=== PATIENT | female | born 1955 | race Caucasian/White ===

== ENCOUNTER → 2022-08-28 16:14 | Outpatient (CLI) | payer MEDICARE, OTHER, SELFPAY ==
[2022-08-28 17:50] LABS: Add Manual Diff / Slide Review NO; Basophils Absolute Auto 100 /uL (0-100); Eosinophils Absolute Auto 100 /uL (0-450); Hematocrit 38.8 % (36-46); Hemoglobin 13.3 g/dL (12.0-16.0); Lymphocytes Absolute Auto 3300 /uL (1100-4500); Lymphocytes Percent Auto 35.2 % (25-40); Mean Corpuscular HGB Conc 34.2 % (30-36); Mean Corpuscular Hemoglobin 30.1 PG (26-34); Monocytes Absolute Auto 700 /uL (0-900); Monocytes Percent Auto 7.4 % (3-14); Neutrophils Absolute Auto 5200 /uL (1500-7000); Neutrophils Percent Auto 55.4 % (50-75); Platelet Count 334 X10^3/uL (150-400); Red Blood Cell Count 4.41 X10^6/uL (4.0-5.2); Red Cell Distribution Width 13.2 % (11.6-14.8); White Blood Cell Count 9.3 X10^3/uL (4.5-11.0)
[2022-08-28 18:02] LABS: Appearance Urine UA CLEAR; Bilirubin Urine UA NEGATIVE (NEGATIVE); Color Urine UA YELLOW; Glucose Urine UA NEGATIVE (Negative); Ketones Urine UA TRACE (NEGATIVE); Leukocyte Esterase Urine UA 3+ (NEGATIVE); Nitrite Urine UA NEGATIVE (Negative); Occult Blood Urine UA NEGATIVE (Negative); Protein Urine UA NEGATIVE (Negative); Urobilinogen Urine UA 0.2 E.U./dL (0.2)
[2022-08-28 18:09] LABS: BUN Creatinine Ratio 18.9 (6-22); Blood Urea Nitrogen 14 mg/dL (7-17); Calcium 9.5 mg/dL (8.4-10.2); Carbon Dioxide 24 mmol/L (22-32); Chloride 102 mmol/L (98-107); Estimated Glomerular Filt Rate > 60 mL/min (>60); Glucose 85 mg/dL (80-110); HEMOLYSIS < 15 (0-50); Potassium 3.5 mmol/L (3.4-5.1); Sodium 136 mmol/L (137-145)
[2022-08-28 18:18] LABS: Bacteria Urine Moderate (10-30); Culture Indicated Urine Specimen Cultured; RBC Urine 1-5/HPF (0-5/HPF); Squamous Epithelial Cell Urine 1-5 /HPF (0-5/HPF); WBC Urine 30-100/HPF (0-5/HPF)
[2022-08-29 21:13] LABS: Labcorp Hemoglobin (Hb) A1c 5.3 % (4.8-5.6)
== END ==
PROVIDERS: Family Provider Family Medicine; PCP Physician Assistant Medical; Referring Provider Orthopaedic Surgery; Visit Provider Orthopaedic Surgery
DX: Z01.818 Encounter for other preprocedural examination (principal); R73.9 Hyperglycemia, unspecified; Z01.812 Encounter for preprocedural laboratory examination; N39.0 Urinary tract infection, site not specified
CPT/HCPCS: 36415; 80048; 81001; 83036; 85025; 87086; 93005

== ENCOUNTER 2022-10-07 15:45 | Emergency (ER) | payer MEDICARE, OTHER, SELFPAY ==
[2022-10-07 15:55] VITALS: BP 119/67; PULSE 70; RESP 16; TEMP 36.6; O2SAT 99; BMI 32.3
--- NOTE | 2022-10-07 16:00 | DI.US.S_ITS ---
PROCEDURE: US PERIPH VENOUS LOW EXTREM LT INDICATIONS: RECENT KNEE REPLACEMENT SURGERY, SWELLING TECHNIQUE: Real-time imaging, as well as color and pulse Doppler interrogation, were performed of the lower extremity deep veins from the inguinal ligament to the popliteal fossa. COMPARISON: None. FINDINGS: The common femoral, femoral and popliteal veins are normally compressible, and free of intraluminal thrombus. Color and pulse Doppler demonstrate normal phasic intraluminal flow. There is normal augmentation response to distal compression maneuver. IMPRESSION: Negative left lower extremity duplex venous ultrasound for DVT. Dictated by: David Eckert M.D. on 10/07/2022 at 17:15 Approved by: David Eckert M.D. on 10/07/2022 at 17:16
--- NOTE | 2022-10-07 18:12 | ED_ITS ---
HPI - Extremity Problem <Aime Morse PA-C - Last Filed: 10/07/22 18:17> General Chief complaint: Extremity Problem,Nontraumatic Stated complaint: DR REF/NEEDS US/POSS BLOOD CLOT Time Seen by Provider: 10/07/22 16:00 Source: patient Mode of arrival: Wheelchair History of Present Illness HPI Narrative: 67-year-old female 1 week status post a left knee replacement presents to the ED for some left ankle and lower leg bruising and swelling. Patient states that her left ankle was swollen since after the surgery, however her daughter noticed some bruising on the lateral aspect of her left ankle and left lower leg. Patient was sent to the ED by her doctor to rule out a DVT. Patient denies fever, chills, chest pain, shortness of breath, nausea, vomiting. Patient states that her surgical site is healing well. Patient denies any pain in the ankle or any injury or trauma to the ankle. Patient denies numbness, tingling, weakness. Related Data Home Medications Medication Instructions Recorded Confirmed aspirin 81 mg tablet,delayed 81 mg PO EVERY OTHER DAY ##0 02/03/16 release Previous Rx's Medication Instructions Recorded levofloxacin 250 mg tablet 750 mg PO NOW #3 tabs 02/08/16 (Levaquin) metronidazole 500 mg tablet 500 mg PO QIDP PRN ##16 02/08/16 (Flagyl) Allergies Allergy/AdvReac Type Severity Reaction Status Date / Time morphine [MORPHINE] Allergy Mild Verified 10/07/22 15:55 Sulfa (Sulfonamide Allergy Mild Verified 10/07/22 15:55 Antibiotics) [SULFA (SULFONAMIDE ANTIBIOTICS)] Review of Systems <Aime Morse PA-C - Last Filed: 10/07/22 18:17> Review of Systems ROS Unobtainable: All systems reviewed & are unremarkable except as noted in HPI and below Constitutional Constitutional: Denies chills, Denies fatigue, Denies fever(s), Denies frequent falls, Denies lethargy and Denies weakness Eyes Eyes: Denies change in vision, Denies eye discharge, Denies irritation and Denies loss of vision ENT Ears, Nose, Mouth, and Throat: Denies change in voice, Denies dizziness, Denies neck pain, Denies sore throat and Denies throat swelling Cardiovascular Cardiovascular: Denies chest pain, Denies irregular heart rhythm, Denies lightheadedness, Denies palpitations, Denies dyspnea, Denies dyspnea on exertion and Denies orthopnea Respiratory Respiratory: Denies cough, Denies dyspnea, Denies dyspnea on exertion and Denies wheezing Gastrointestinal Gastrointestinal: Denies abdominal pain, Denies change in bowel habits, Denies diarrhea, Denies nausea and Denies vomiting Genitourinary Genitourinary: Denies hematuria, Denies flank pain, Denies urinary incontinence and Denies urinary urgency Musculoskeletal Musculoskeletal: Denies back pain, Denies muscle weakness, Denies neck pain, Denies numbness and Denies tingling Comments: Left ankle and lower leg bruising Integumentary/Breasts Skin/Breast: Denies pruritus, Denies erythema, Denies rash and Denies wounds Neurologic Neurologic: Denies behavioral changes, Denies confusion, Denies dizziness, Denies frequent falls, Denies loss of vision, Denies numbness, Denies tingling and Denies weakness Psychiatric Psychiatric: Denies anxiety, Denies behavioral changes, Denies confusion, Denies depression, Denies homicidal ideation and Denies suicidal ideation Endocrine Endocrine: Denies fatigue, Denies flushing and Denies palpitations Hematologic/Lymphatic Hematologic/Lymphatic: Denies easy bruising Allergic/Immunologic Allergic/Immunologic: Denies urticaria, Denies throat swelling and Denies wheezing Patient History <Aime Morse PA-C - Last Filed: 10/07/22 18:17> Social History Smoking Status: Never smoker Smoking Status: Never smoker alcohol intake frequency: a few times a month Substance Use Type: marijuana Exam <Aime Morse PA-C - Last Filed: 10/07/22 18:17> Narrative Exam Narrative: Const General:?cooperative, healthy appearing and comfortable [facility] Head:?normal to inspection Ears:?hearing grossly normal bilaterally Nose:?external nose normal Face and sinus:?normal facial exam and sinuses nontender Mouth:?oral mucosae normal Throat:?posterior oropharynx normal Eyes General:?appearance normal, both eyes and all related structures Neck Neck:?normal visual inspection and no lymphadenopathy noted Resp Effort & Inspection:?normal respiratory effort Auscultation:?clear to auscultation bilaterally Cardio Rate:?regular rate Rhythm:?regular rhythm Musculoskeletal There is some lateral ankle and lower leg bruising that appears to be dependent blood possibly sequelae from the knee replacement in that leg from last week. No tenderness to palpation. No deformities noted. Lower leg and ankle appears somewhat swollen compared to the right, however patient states that it has been that way since the knee replacement. Strength and sensation is intact. Full range of motion. Patient is neurovascularly intact. Neuro General:?patient alert, patient awake and patient oriented x3 Initial Vital Signs Initial Vital Signs: Vital Signs Temperature 98 F 10/07/22 15:55 Pulse Rate 70 10/07/22 15:55 Respiratory Rate 16 10/07/22 15:55 Blood Pressure 119/67 10/07/22 15:55 Pulse Oximetry 99 10/07/22 15:55 Oxygen Delivery Method Room Air 10/07/22 15:55 <Macie Reyes DO - Last Filed: 10/08/22 07:22> Initial Vital Signs Initial Vital Signs: Vital Signs Temperature 98 F 10/07/22 15:55 Pulse Rate 70 10/07/22 15:55 Respiratory Rate 16 10/07/22 15:55 Blood Pressure 119/67 10/07/22 15:55 Pulse Oximetry 99 10/07/22 15:55 Oxygen Delivery Method Room Air 10/07/22 15:55 Course <Aime Morse PA-C - Last Filed: 10/07/22 18:17> Orders Ordered: ED Orders 10/07/22 16:00 US perip venous low extrem lt Stat Vital Signs Vital signs: Vital Signs - 8 hr 10/07/22 15:55 Temperature 98 F Pulse Rate 70 Respiratory Rate 16 Blood Pressure 119/67 Pulse Oximetry 99 Oxygen Delivery Method Room Air <DO Eder Gutierres Last Filed: 10/08/22 07:22> Orders Ordered: ED Orders 10/07/22 16:00 US perip venous low extrem lt Stat Vital Signs Vital signs: Vital Signs - 8 hr 10/07/22 15:55 Temperature 98 F Pulse Rate 70 Respiratory Rate 16 Blood Pressure 119/67 Pulse Oximetry 99 Oxygen Delivery Method Room Air MDM - Extremity (Nontraumatic) <Aime Morse PA-C - Last Filed: 10/07/22 18:17> MDM Narrative Medical decision making narrative: 67-year-old female 1 week status post a left knee replacement presents to the ED for some left ankle and lower leg bruising and swelling. Concern for DVT versus postoperative swelling and bruising. Ultrasound without acute findings. Discussed findings with patient. Patient agrees to follow-up with her orthopedic surgeon as scheduled. ED return precautions were discussed with patient. Patient verbalized understanding. Medical records reviewed: Yes Discharge Plan Departure Patient Disposition: Home Clinical Impression: Leg swelling Instructions: DI for Leg Pain Activity Restrictions/Additional Instructions: You were evaluated in the ED today for left ankle swelling and bruising following a knee replacement in that leg. The ultrasound of your leg shows no blood clots or DVTs. The bruising is likely due to some bleeding in the leg from the surgery, which should resolve in the next few days. Please follow-up with your orthopedic surgeon as scheduled. Return to the ED if your symptoms worsen, you experience fever, chills, shortness of breath. Prescriptions: No Action aspirin 81 MG tablet,delayed release (DR/EC) 81 mg PO EVERY OTHER DAY Qty: 0 metronidazole [Flagyl] 500 MG tablet 500 mg PO QIDP PRNQty: 16 0RF levofloxacin [Levaquin] 250 MG tablet 750 mg PO NOW Qty: 3 0RF Referrals: Teresita Bravo PA-C [Primary Care Provider] - Stand Alone Forms: Patient Portal/API <Macie Reyes DO - Last Filed: 10/08/22 07:22> Cosign ED Attending Estherature Attestation: I was immediately available in the department for consultation. Documentation has been reviewed.
[2022-10-07 18:29] VITALS: BP 139/67; PULSE 62; RESP 14; O2SAT 95
== END 2022-10-07 18:29 | disposition home or self-care (01) ==
PROVIDERS: Emergency Provider Student in an Organized Health Care Education/Training Program; Family Provider Family Medicine; PCP Physician Assistant Medical
DX: R60.9 Edema, unspecified (principal)
CPT/HCPCS: 93971; 99281; 99283

== ENCOUNTER → 2023-02-28 12:18 | Outpatient (CLI) | payer MEDICARE, OTHER, SELFPAY ==
[2023-02-28 13:49] LABS: Add Manual Diff / Slide Review NO; Basophils Absolute Auto 100 /uL (0-100); Basophils Percent Auto 1.4 % (0-2); Eosinophils Absolute Auto 100 /uL (0-450); Eosinophils Percent Auto 1.7 % (2-4); Hematocrit 38.8 % (36-46); Hemoglobin 13.1 g/dL (12.0-16.0); Lymphocytes Absolute Auto 2100 /uL (1100-4500); Lymphocytes Percent Auto 32.7 % (25-40); Mean Corpuscular HGB Conc 33.7 % (30-36); Mean Corpuscular Hemoglobin 29.5 PG (26-34); Mean Corpuscular Volume 87.4 fL (80-100); Monocytes Absolute Auto 500 /uL (0-900); Monocytes Percent Auto 7.3 % (3-14); Neutrophils Absolute Auto 3600 /uL (1500-7000); Neutrophils Percent Auto 56.9 % (50-75); Platelet Count 315 X10^3/uL (150-400); Red Blood Cell Count 4.44 X10^6/uL (4.0-5.2); Red Cell Distribution Width 14.2 % (11.6-14.8); White Blood Cell Count 6.3 X10^3/uL (4.5-11.0)
[2023-02-28 13:50] LABS: Hemoglobin A1C% w Est Avg Glu 5.2 % (4.0-6.0)
[2023-02-28 14:14] LABS: BUN Creatinine Ratio 9.1 (6-22); Blood Urea Nitrogen 7 mg/dL (7-17); Calcium 9.9 mg/dL (8.4-10.2); Carbon Dioxide 23 mmol/L (22-32); Chloride 101 mmol/L (98-107); Estimated Glomerular Filt Rate > 60 mL/min (>60); Glucose 101 mg/dL (80-110); HEMOLYSIS < 15 (0-50); Potassium 4.1 mmol/L (3.4-5.1); Sodium 135 mmol/L (137-145)
[2023-02-28 14:33] LABS: Appearance Urine UA CLEAR; Bilirubin Urine UA NEGATIVE (NEGATIVE); Color Urine UA YELLOW; Glucose Urine UA NEGATIVE (Negative); Ketones Urine UA NEGATIVE (NEGATIVE); Leukocyte Esterase Urine UA TRACE (NEGATIVE); Nitrite Urine UA NEGATIVE (Negative); Occult Blood Urine UA NEGATIVE (Negative); Protein Urine UA NEGATIVE (Negative); Urobilinogen Urine UA 0.2 E.U./dL (0.2)
[2023-02-28 14:40] LABS: Bacteria Urine None Seen; Culture Indicated Urine Cult Not Indicated; RBC Urine None Seen (0-5/HPF); Squamous Epithelial Cell Urine None Seen (0-5/HPF); WBC Urine 0-1/HPF (0-5/HPF)
== END ==
PROVIDERS: Family Provider Family Medicine; PCP Physician Assistant Medical; Referring Provider Orthopaedic Surgery; Visit Provider Orthopaedic Surgery
DX: Z01.818 Encounter for other preprocedural examination (principal); R73.9 Hyperglycemia, unspecified
CPT/HCPCS: 36415; 80048; 81001; 83036; 85025; 93005

== ENCOUNTER 2023-06-03 06:02 | Day surgery (SDC) | payer MEDICARE, OTHER, SELFPAY ==
[2023-05-27 09:56] VITALS: BMI 32.3
[2023-06-03] VITALS (18 sets, daily range): BP systolic 118–209; BP diastolic 52–102; PULSE 60–90; RESP 10–17; TEMP 35.9–36.7; O2SAT 92–100; BMI 34.0
--- NOTE | 2023-06-03 | DI.RAD.S_ITS ---
PROCEDURE: XR HIP W PEL IF DONE RT 2V INDICATIONS: Post op TECHNIQUE: 2 view(s) of the hip acquired. COMPARISON: [facility], CR, XR PELVIS 1-2V, 06/03/2023, 9:00. FINDINGS: Bones: Patient is status post right hip arthroplasty, with hardware components in expected positions. The hip joint appears congruent. The visualized bony structures appear intact. Mild left hip arthritic change. Degenerative changes are present within the lumbar spine. Soft tissues: Overlying postoperative changes are noted. No suspicious soft tissue densities. IMPRESSION: Expected post-operative appearance of a hip arthroplasty. Dictated by: Danica Avitia M.D. on 06/03/2023 at 11:57 Approved by: Danica Avitia M.D. on 06/03/2023 at 11:58
--- NOTE | 2023-06-03 06:39 | DI.RAD.S_ITS ---
PROCEDURE: XR PELVIS 1-2V INDICATIONS: VICKY TECHNIQUE: 1 view of the lower pelvis acquired. COMPARISON: None. FINDINGS: Bones: Patient is status post right hip arthroplasty, with hardware components in expected positions. The hip joint appears congruent. The visualized bony structures appear intact. Soft tissues: Overlying postoperative changes are noted. No suspicious soft tissue densities. IMPRESSION: Intraoperative imaging obtained during right hip arthroplasty. Dictated by: Bailee Lord M.D. on 06/03/2023 at 9:38 Approved by: aBilee Lord M.D. on 06/03/2023 at 9:38
[2023-06-03] MEDS: VANCOMYCIN 1,000 MG/200 ML PIGGYBACK 200 MG IV (06:59)
[2023-06-03] MEDS: CELECOXIB 200 MG CAPSULE PO (06:59)
[2023-06-03] MEDS: ACETAMINOPHEN 325 MG TABLET 975 MG PO (06:59)
[2023-06-03] MEDS: LACTATED RINGERS 1,000 ML 42 ML IV ×2 (07:00→10:29)
--- NOTE | 2023-06-03 07:43 | PM.PREOP ---
Pre-operative Note Interval Note History & Physical reviewed/Exam performed by Physician: Yes Changes to H&P: No
--- NOTE | 2023-06-03 07:44 | PM.OP.1 ---
Operative Date/Time/Diagnoses Date of procedure: 06/03/23 Time of procedure: 08:10 Pre-op diagnosis: Right hip OA Post-op diagnosis: same Procedure & Clinicians Procedure: Right total hip arthroplasty posterior approach Same procedure as scheduled: Yes Indications: The patient has had progressively worsening right hip pain with radiographic changes consistent with arthritis. Non-operative management has failed and the patient has requested total hip replacement. The risks, benefits and alternatives to surgery were discussed with the patient prior to proceeding. Risks discussed included, but were not limited to, failure to relieve pain, leg length discrepancy, dislocation, stiffness, infection, nerve damage, deep venous thrombosis, pulmonary embolism, stroke, coma, heart attack, permanent paralysis and , as well as the potential need for eventual revision of the prosthetic. Surgeon: Tita Pollock Resource Manager Forester: Carlos Zavala Anesthesia Type: General and Spinal Operative Notes Findings: Severe right hip OA, adequate stability, adequate bone Closure Type: primary Specimen(s): none sent Prosthetic devices, grafts, tissues, transplants, or devices: Pollock and nephew R3 size 52, neutral poly liner, one 6.5 mm screw, 52 x +0 cobalt chrome head, size 3 polar stem Estimated Blood Loss (mL): 250 Blood products transfused: none Procedure in detail: The patient was seen in the pre-operative area, where the patient identified the right hip as the operative site and this was marked with my initials. The patient received pre-operative antibiotics and was taken to the operating room and placed on the operative table in the left lateral decubitus position after satisfactory anesthesia. A internal affairs commander out was performed. The right leg was prepared from the ankle to the iliac crest with ChloroPrep in the usual fashion and draped through sterile drapes. A PA was used during the procedure and was essential for intraoperative retraction and safe implantation of the components. They were helpful for assisting with visualization for hemostasis as well as manipulating a heavy right leg. The hip was approached through an approximately 20 cm incision centered over the greater trochanter and curving gently posteriorly as it went proximally. This was carried sharply to the fascia jerrica, which was divided and retracted with a self retaining retractor. The trochanteric bursa was excised with care being taken to avoid the sciatic nerve, which was identified and protected throughout the case. The short external rotators were incised and the capsulomuscular flap was raised and tagged for later repair. The hip was dislocated, and a femoral neck osteotomy performed approximately 15 mm above the lesser trochanter. Retractors were placed around the femur. The canal was opened with a box cutting osteotome, followed by a T handled reamer and a lateralizing reamer. The chili pepper broach was then used, followed by sequential broaching until there was good stability of the broach in the femur. Retractors were placed to expose the acetabulum. The labrum and central soft tissues were removed. Reaming was performed initially going up in 2 mm increments, then 1 mm increments until good bite was obtained with an odd sized reamer. The cup 1 mm larger than the last reamer was then inserted using the appropriate anteversion guides. It was further stabilized with a single screw. A trial neutral liner was placed. The broach was placed in the canal. A trial head and neck were then placed and the hip relocated and checked for leg length and stability. An intraoperative film confirmed the component position and no evidence of fracture. The patient was stable in the position of sleep, of squatting, and could be put through a range of motion with 45 degrees internal rotation without dislocation. At 90 degrees flexion, internal rotation to 70? was possible before dislocation. This was felt to be satisfactory and the appropriate components were opened, and the trials were removed. The acetabular liner was impacted into position. The final stem was then impacted into the prepared femoral canal. A brief Betadine soak was performed while trialing with head options. The hip was meticulously irrigated with normal saline. Finally the femoral head was impacted onto the stem. The acetabulum was cleared of all material and the hip relocated one final time. The capsulomuscular flap was then repaired to the greater trochanter though an awl hole using the tag sutures. The short external rotators were repaired with a nonabsorbable suture. A deep drain was placed and brought out anteriorly. The fascia jerrica was closed with Vicryl. The subcutaneous layer was closed with barbed sutures and some marek and glue. A arnav dressing was applied and the patient was taken to recovery having tolerated the procedure well. Complications: none Post-operative Condition: stable Disposition: Acute Care Plan for aftercare: The patient will be maintained on a standard total hip replacement protocol with weight bearing as tolerated and posterior hip precautions. The patient will receive Aspirin and sequential compression devices for DVT prophylaxis. The patient will be discharged home when safe for the home environment.
[2023-06-03] MEDS: CEFAZOLIN 2 GM/100 ML PREMIX 100 ML IV ×3 (08:25→23:34)
--- NOTE | 2023-06-03 08:37 | SUR.OPER ---
Lateral on padded OR bed. Gel axillary roll. Arms secured on padded armboard with pillow supporting top arm. Padded hip positioner braces x4 - anterior and posterior chest and pelvis. Additional gel pad used anterior pelvis. Gel pad under bottom leg from knee to foot and secured with tape over sheet.
[2023-06-03] MEDS: TRANEXAMIC ACID 1,000 MG VIAL 1000 MG INJ ×2 (08:46→09:42)
[2023-06-03] MEDS: BUPIVACAINE 0.25% (PF) 60 ML, EPINEPHrine 0.3 MG INJ (08:47)
[2023-06-03] MEDS: SODIUM CHLORIDE IRRIG SOLUTION 250 ML, EPINEPHrine 1 MG IRR (08:50)
[2023-06-03] MEDS: BUPIVACAINE LIPOSOME 266 MG/20 ML VIAL INJ (09:00)
--- NOTE | 2023-06-03 10:43 | SUR.PHASEI ---
Pt transferred to room 211 in bed by Hernando BARKER with 1 belongings bag.
--- NOTE | 2023-06-03 11:12 | PC.NURSE ---
Addendum entered by Brenda Navarro R.N. 06/03/23 11:16: Philippe is at the bedside. Pt denies pain, nausea, or shortness of breath. Pt and Spouse oriented to room, call light, bed controls, and tv controls. SCD's on and running.Bed alarm on for safety. Requested Pt call for assistance as needed and to not get up without help. Original Note: Pt to room 211 via bed from PACU. Pt wakes easily but is easily roused by voice and answers appropriately. Isai
[2023-06-03] MEDS: ACETAMINOPHEN 325 MG TABLET 650 MG PO ×3 (11:21→22:34)
[2023-06-03] MEDS: IBUPROFEN 400 MG TABLET PO ×4 (11:21→22:35)
[2023-06-03] MEDS: OXYCODONE IR 5 MG TABLET PO ×2 (12:19→22:34)
--- NOTE | 2023-06-03 15:01 | PC.NURSE ---
Pt up to br to void using FWW with ASSEMBLER UNIT and Spouse. Denies dizziness or pain. Pt back to bed and agrees to call for assistance as needed.
--- NOTE | 2023-06-03 15:10 | PT.IIE ---
Current Diagnoses Unilateral primary osteoarthritis, right hip (06/03/23) Surgery Performed Operation Date: 06/03/23 07:45 Actual Procedures p Total Hip Arthroplasty-posterior(Right) - Tita Pollock MD Surgical History (Last Updated 05/27/23 @ 10:18 by Emmy Garcia RN) History of total left knee replacement (09/30/22) History of total right knee replacement (2001) Hx of appendectomy Hx of bilateral cataract extraction Medical History (Last Updated 05/27/23 @ 10:18 by mEmy Garcia RN) Carpal tunnel syndrome on both sides Depression GERD (gastroesophageal reflux disease) HTN (hypertension) Physical Therapy Inpatient Evaluation/Re-Eval M1 PT/OT-IP Prior Functional Status Start: 06/03/23 17:13 Freq: NEEDED Status: Active Protocol: Document 06/03/23 15:10 AB (Rec: 06/03/23 17:24 AB [id number]) Medical Review Prior Functional Status Medical History Reviewed Yes Communication able to make needs known Mobility and Gait pt stated that she was modified independent with all mobilities and ambulation usng 2 walking poles Social History Household Members spouse Living Arrangements House Number of Floors (Floors) One Floor Number of Stairs To Enter/Railing? chair lift to enter Home Environment Standard Height Toilet,Walk in Shower Home Equipment Front Wheel Walker,Four Wheel Walker,Raised Toilet Seat Without Armrests,Shower Seat without Backrest Additional Social History Comment pt has a toilet safety frame that she use in her shower M2 PT-IP Current Condition Start: 06/03/23 17:13 Freq: NEEDED Status: Active Protocol: Document 06/03/23 15:10 AB (Rec: 06/03/23 17:24 AB [id number]) Physical Therapy Current Condition Current Condition Evaluation Date 06/03/23 Treatment Diagnosis s/p R VICKY posterior; difficulty in walking Onset Date 06/03/23 M3 PT-IP Subjective Start: 06/03/23 17:13 Freq: NEEDED Status: Active Protocol: Document 06/03/23 15:10 AB (Rec: 06/03/23 17:24 AB [id number]) Subjective Physical Therapy Visit Type Type Initial Evaluation Visit Start Time 15:10 Visit Stop Time 16:20 Number of ADOPTION AGENT Visits 0 Therapy Pain Assessment Pain When Pain Assessed At Rest Pain Present Pain Present Pain Reported Location Right Hip Intensity 1 Scale Used Numeric (0 - 10) Pain Management Techniques Apply Cold,Distraction, Modification of Treatment,Re- positioning,Timing of Activity with Medications M4 PT-IP Mobility and Gait Start: 06/03/23 17:13 Freq: NEEDED Status: Active Protocol: Document 06/03/23 15:10 AB (Rec: 06/03/23 17:24 AB [id number]) PT-Bed Mobility Assessment Supine to Sit Supine to Sit Standby Assistance Sit to Supine Sit to Supine Standby Assistance PT-Transfer Assessment Sit to and From Stand Sit to and from Stand Contact Guard Assistance,1 Person Assistance,Use of Upper Extremities Equipment Transfer Assistive Device Gait Belt,Front Wheeled Walker Orthotic/Prosthetic Devices or Brace: No Transfer Ability Level of Assist Contact Guard Assistance,1 Person Assistance,Use of Upper Extremities Comments Mobility Comments pt supine in bed. agreed to do PT. spouse in room. obtained PLOF and home set up. post-op folder provided and reviewed contents. educated pt and spouse regarding pt's R hip posterior precautions. pt was able to recall after a few repetitions. BP in supine : 133/58 pt completed supine to sit SBA . able to sit on EOB SBA. completed sit to stand CGA and cues for leg postion for hip precautions. pt ambulated in room using FWW ~ 30 ft CGA. pt sat back on EOB. caregiver training conducted. educated spouse on how to use safety belt and how to assist pt. spouse assisted pt with with to stand and ambulation in room using FWW. pt went back to bed. completed sit to supine SBA. positioned pt in bed. call light and table placed within reach. Gait Assessment Gait Gait Assistance Required: Contact Guard Assist Distance (Feet) 30 Able to Maintain Weight Bearing Status Yes During Gait Assistive Devices Assistive Device Gait Belt,Front Wheeled Walker Orthotic/Prosthetic Devices or Brace: No Gait Deviations General Gait Pattern Decreased Stride Length, Decreased Feet Clearance Factors Limiting Gait Function Factors Limiting Gait Function Decreased Activity Tolerance, Difficulty Following Directions,Limited Range of Motion,Pain,Poor Balance,Poor Safety Awareness PT-Balance Assessment Sitting Balance and Reactions Static Sitting Balance Ability Normal Dynamic Sitting Balance Ability Good Standing Balance and Reactions Static Standing Balance Ability Fair Dynamic Standing Balance Ability Fair Device Used FWW M5 PT-IP Objective Assessments Start: 06/03/23 17:13 Freq: NEEDED Status: Active Protocol: Document 06/03/23 15:10 AB (Rec: 06/03/23 17:24 AB [id number]) Orientation Orientation/Cognition Level of Alertness Alert Orientation Name,Place,Situation Language Function Ability No Deficits Noted Safety Awareness Decreased Safety Awareness Memory Description Short Term Impaired Gross Range of Motion Lower Extremity ROM Assessment Within Functional Limits Strength Lower Extremity Strength Assessment Right Impaired Hip 3+/5 Knee 4-/5 Sensation Assessment Sensation Gross Sensation WNL Muscle Tone Muscle Tone WNL Yes M6 PT-IP Treatment Start: 06/03/23 17:13 Freq: NEEDED Status: Active Protocol: Document 06/03/23 15:10 AB (Rec: 06/03/23 17:24 AB [id number]) Physical Therapy Treatment Education Education Provided Precautions,Weight Bearing Status,Post-Op Packet,Safety M7 PT-IP Assessment and Plan Start: 06/03/23 17:13 Freq: NEEDED Status: Active Protocol: Document 06/03/23 15:10 AB (Rec: 06/03/23 17:24 AB [id number]) PT Summary Assessment and Plan Potential Rehabilitation Potential Fair Status of Condition at Evaluation Stable Summary Impairments Pain,ROM,Strength,Balance, Coordination,Sensation,Tone, Cognition,Bed Mobility, Transfers,Gait,Activity Tolerance Assessment Summary pt is a 67 y/o F s/p R VICKY posterior approach POD 0. pt has R hip posterior precautions and is WBAT. pt requiring CGA with mobility using FWW. caregiver training conducted and spouse is able to assist pt safely. pt may go home when medically stable. Goals Bed Mobility Goal Independent Transfer Goal Independent,Front Wheeled Walker Gait Goal Independent,Front Wheel Walker Gait Distance 300 Other Goals improve transfers and ambulation usign LRAD ~ 300 ft mod I Days to Meet Goals 5 Frequency of Treatment Frequency Of Treatment Twice a Day Treatment Plan Physical Therapy Treatment Plan Bed Mobility Training,Transfer Training,Gait Training, Therapeutic Exercise,Balance Retraining,Post Op Education, Discharge Planning,Hot or Cold Pack,Neuromuscular Re-ed, Coordination Retraining,Manual Therapy Precautions Posterior Hip Precautions No Hip Flexion > 90 degrees,No Hip Internal Rotation,No Hip Adduction Weight Bearing Status Weight Bearing Status Weight Bear as Tolerated Allowed Weight Bearing Amount (enter % RLE WBAT or #) (%) Recommendations To Nursing Amount of Assist Needed 1 Person Assist Discharge Recommendations PT Discharge Recommendations Home with Assistance, Outpatient PT Transportation Needs at Discharge Private Vehicle
[2023-06-03] MEDS: LACTATED RINGERS 1,000 ML 100 ML IV (19:55)
[2023-06-03] MEDS: ASPIRIN EC 81 MG TABLET PO (20:58)
[2023-06-03] MEDS: DOCUSATE 100 MG CAPSULE PO (20:58)
--- NOTE | 2023-06-03 23:58 | PC.NURSE ---
Patient is alert and oriented. Breath sounds CTA with RA sat of 96%; on continuous oximetry HRR w/BP of 147/75. Denied nausea. BT present but has not yet passed flatus. Voiding with dysuria, frequency or urgency and is continent. Able to move herself in bed. Up to bathroom with walker and SBA; adheres to posterior hip precautions. FRANCIA dressing to right lateral hip is intact and functioning with small spots of drainage noted. Pain has been minimal w/max so far this shift of 4/10 and is taking scheduled Ibuprofen + tylenol (requests not to be awakened at night for scheduled pain meds) + oxycodone; also using ice to hip intermittently. CMS is intact. Wearing bilateral calf SCD's. Fall risk score is moderate and bed alarm is activated.
[2023-06-04] MEDS: IBUPROFEN 400 MG TABLET PO ×3 (03:04→10:09)
[2023-06-04] MEDS: ACETAMINOPHEN 325 MG TABLET 650 MG PO ×2 (04:26→10:09)
[2023-06-04 06:35] LABS: Hematocrit 31.8 % (36-46)
[2023-06-04] MEDS: PANTOPRAZOLE DR 20 MG TABLET PO (06:40)
[2023-06-04 08:17] VITALS: BP 154/82; PULSE 69
[2023-06-04] MEDS: ASPIRIN EC 81 MG TABLET PO (08:17)
[2023-06-04] MEDS: lisinopriL 20 MG TABLET PO (08:17)
[2023-06-04] MEDS: SERTRALINE 50 MG TABLET PO (08:17)
[2023-06-04] MEDS: polyethylene glycoL 3350 17 GM POWD.PACK PO (08:17)
[2023-06-04] MEDS: DOCUSATE 100 MG CAPSULE PO (08:17)
[2023-06-04 08:18] VITALS: BP 154/82; PULSE 69
[2023-06-04] MEDS: METOPROLOL ER 50 MG TABLET PO (08:18)
--- NOTE | 2023-06-04 08:30 | PT.IPTN ---
Current Diagnoses Unilateral primary osteoarthritis, right hip (06/03/23) Surgery Performed Operation Date: 06/03/23 07:45 Actual Procedures p Total Hip Arthroplasty-posterior(Right) - Tita Pollock MD Physical Therapy Treatment Note M2 PT-IP Current Condition Start: 06/03/23 17:13 Freq: NEEDED Status: Discharge Protocol: Document 06/03/23 15:10 AB (Rec: 06/03/23 17:24 AB [id number]) Physical Therapy Current Condition Current Condition Evaluation Date 06/03/23 Treatment Diagnosis s/p R VICKY posterior; difficulty in walking Onset Date 06/03/23 M3 PT-IP Subjective Start: 06/03/23 17:13 Freq: NEEDED Status: Discharge Protocol: Document 06/04/23 08:30 AB (Rec: 06/04/23 13:38 AB [id number]) Subjective Physical Therapy Visit Type Type Treatment Note Visit Start Time 08:30 Visit Stop Time 08:46 Number of TRACK GRINDER Visits 16 Physical Therapy Visit Comments Patient Comments agreeable to do PT Therapy Pain Assessment Pain When Pain Assessed At Rest Pain Present Pain Present Pain Reported Location Right Hip Intensity 2 Scale Used Numeric (0 - 10) Pain Management Techniques Apply Cold,Distraction, Modification of Treatment,Re- positioning,Timing of Activity with Medications M4 PT-IP Mobility and Gait Start: 06/03/23 17:13 Freq: NEEDED Status: Discharge Protocol: Document 06/04/23 08:30 AB (Rec: 06/04/23 13:38 AB [id number]) PT-Transfer Assessment Sit to and From Stand Sit to and from Stand Standby Assistance,1 Person Assistance,Use of Upper Extremities Equipment Transfer Assistive Device Gait Belt,Front Wheeled Walker Orthotic/Prosthetic Devices or Brace: No Comments Mobility Comments pt sitting on the chair and agreeable to do PT. reviewed posterior hip precautions and pt recalled 1/3. educated pt regarding hip precautions. pt completed sit to stand SBA and ambulated in room using FWW SBA. pt sat back on the chair. positioned on the chair. call light and table placed within reach. reviewed hip precautions again and pt recalled 3/3. pt without further concerns Gait Assessment Gait Gait Assistance Required: Standby Assistance Distance (Feet) 50 Able to Maintain Weight Bearing Status Yes During Gait Assistive Devices Assistive Device Gait Belt,Front Wheeled Walker Orthotic/Prosthetic Devices or Brace: No Gait Deviations General Gait Pattern Antalgic,Decreased Stride Length,Decreased Feet Clearance Factors Limiting Gait Function Factors Limiting Gait Function Decreased Activity Tolerance, Decreased Strength,Limited Range of Motion,Pain,Poor Balance M5 PT-IP Objective Assessments Start: 06/03/23 17:13 Freq: NEEDED Status: Discharge Protocol: Document 06/03/23 15:10 AB (Rec: 06/03/23 17:24 AB [id number]) Orientation Orientation/Cognition Level of Alertness Alert Orientation Name,Place,Situation Language Function Ability No Deficits Noted Safety Awareness Decreased Safety Awareness Memory Description Short Term Impaired Gross Range of Motion Lower Extremity ROM Assessment Within Functional Limits Strength Lower Extremity Strength Assessment Right Impaired Hip 3+/5 Knee 4-/5 Sensation Assessment Sensation Gross Sensation WNL Muscle Tone Muscle Tone WNL Yes M6 PT-IP Treatment Start: 06/03/23 17:13 Freq: NEEDED Status: Discharge Protocol: Document 06/04/23 08:30 AB (Rec: 06/04/23 13:38 AB [id number]) Physical Therapy Treatment Education Education Provided Precautions,Safety M7 PT-IP Assessment and Plan Start: 06/03/23 17:13 Freq: NEEDED Status: Discharge Protocol: Document 06/04/23 08:30 AB (Rec: 06/04/23 13:38 AB [id number]) PT Summary Assessment and Plan Potential Rehabilitation Potential Good Summary Impairments Pain,ROM,Strength,Balance, Coordination,Sensation,Tone, Cognition,Bed Mobility, Transfers,Gait,Activity Tolerance Progress Towards Goals Progressing Toward Goals Assessment Summary pt is s/p R VICKY posterior POD 1. pt requiring SBA with mobility using FWW. caregiver training was completed yesterday with spouse. pt may go home when medically stable . Goals Bed Mobility Goal Independent Transfer Goal Independent,Front Wheeled Walker Gait Goal Independent,Front Wheel Walker Gait Distance 300 Other Goals improve transfers and ambulation usign LRAD ~ 300 ft mod I Days to Meet Goals 5 Frequency of Treatment Frequency Of Treatment Twice a Day Treatment Plan Physical Therapy Treatment Plan Bed Mobility Training,Transfer Training,Gait Training, Therapeutic Exercise,Balance Retraining,Post Op Education, Discharge Planning,Hot or Cold Pack,Neuromuscular Re-ed, Coordination Retraining,Manual Therapy Precautions Posterior Hip Precautions No Hip Flexion > 90 degrees,No Hip Internal Rotation,No Hip Adduction Weight Bearing Status Weight Bearing Status Weight Bear as Tolerated Allowed Weight Bearing Amount (enter % RLE WBAT or #) (%) Recommendations To Nursing Amount of Assist Needed 1 Person Assist Discharge Recommendations PT Discharge Recommendations Home with Assistance, Outpatient PT Transportation Needs at Discharge Private Vehicle
--- NOTE | 2023-06-04 09:20 | OT.IP.EVAL ---
Current Diagnoses Unilateral primary osteoarthritis, right hip (06/03/23) Surgery Performed Operation Date: 06/03/23 07:45 Actual Procedures p Total Hip Arthroplasty-posterior(Right) - Tita Pollock MD Past Medical History (Last Updated 05/27/23 @ 10:18 by Emmy Garcia, RN) Carpal tunnel syndrome on both sides Depression GERD (gastroesophageal reflux disease) HTN (hypertension) Surgical History (Last Updated 05/27/23 @ 10:18 by Emmy Garcia RN) History of total left knee replacement (09/30/22) History of total right knee replacement (2001) Hx of appendectomy Hx of bilateral cataract extraction Occupational Therapy Inpatient Evaluation/Re-Eval M1 PT/OT-IP Prior Functional Status Start: 06/04/23 09:22 Freq: NEEDED Status: Active Protocol: Document 06/04/23 09:22 [facility] (Rec: 06/04/23 09:33 [facility] [id number]) Medical Review Prior Functional Status Medical History Reviewed Yes Communication able to make needs known Mobility and Gait pt stated that she was modified independent with all mobilities and ambulation using 2 walking poles Activities of Daily Living and IADL's Pt states able to do with her LB dressing equipment needs and that her assists with IADL needs. Social History Household Members spouse Living Arrangements House Number of Floors (Floors) One Floor Number of Stairs To Enter/Railing? chair lift to enter Home Environment Standard Height Toilet,Walk in Shower Home Equipment Front Wheel Walker,Four Wheel Walker,Raised Toilet Seat Without Armrests,Shower Seat without Backrest,Pathology Transcriptionist,Sock Aid Additional Social History Comment pt has a toilet safety frame that she use in her shower with the shower stool. M2 OT-IP Current Condition Start: 06/04/23 09:22 Freq: Status: Active Protocol: Document 06/04/23 09:22 [facility] (Rec: 06/04/23 09:33 [facility] [id number]) Occupational Therapy Current Condition Current Condition Evaluation Date 06/04/23 Treatment Diagnosis S/P R VICKY posterior approach Diagnosis Onset Date 06/03/23 M3 OT- IP Subjective and Pain Start: 06/04/23 09:22 Freq: Status: Active Protocol: Document 06/04/23 09:22 [facility] (Rec: 06/04/23 09:33 [facility] [id number]) OT- Subjective Occupational Therapy Visit Type Type Initial Evaluation Visit Start Time 09:00 Visit Stop Time 09:20 Occupational Therapy Visit Comments Patient Comments Pt agreed to get up to use the bathroom. Patient/Caregiver Goals TO go home. OT Pain Assessment Pain When Pain Assessed At Rest Pain Present Pain Present Pain Reported Location Right Hip Intensity 1 Scale Used Numeric (0 - 10) M4 OT- IP ADL's Start: 06/04/23 09:22 Freq: Status: Active Protocol: Document 06/04/23 09:22 [facility] (Rec: 06/04/23 09:33 [facility] [id number]) OT NTE-[place] General Evaluation Self-Feeding Ability Independent OT ADL-Grooming General Evaluation Grooming Ability Independent OT ADL-Oral Care Comments Oral Care Comments Pt states did prior. OT ADL-Dressing Comments OT Dressing Comments Pt already been using LB dressing equipment and has knowledge to be able to follow her hip precautions for all dressing needs. OT ADL-Toileting General Evaluation Toileting Ability Standby Assistance Comments OT Toileting Comments Educated pt best to stand to wipe and use of wet one would be easier to follow her posterior hip precautions. Suggested pt get a BSC as the bathroom is down the hallway per pt. Pt states does not feel that she needs it. OT ADL-Bathing Comments OT Bathing Comments Suggested pt use the fww to help get into the shower. Pt has a toilet safety frame with shower stool set up in the walk in shower. Suggested to use a long thin towel for pericare needs, to assist or get a long handle brush to assist with showering needs. M5 OT- IP IADL's Start: 06/04/23 09:22 Freq: Status: Active Protocol: Document 06/04/23 09:22 [facility] (Rec: 06/04/23 09:33 [facility] [id number]) OT-Instrumental Activities of Daily Living Deficits IADL Deficits Identified Deficits Home Safety Awareness Awareness of Need for Assistance at Home Good Awareness Ability to Problem Solve Emergency Able to Problem Solve Situations Medication Management Medication Management No Deficits Identified Medication Management Comments Pt's to assist as needed. Money Management Money Management Caregiver Provides Assistance Meal Preparation Meal Preparation Caregiver Provides Assist Credit Risk Modeler Credit Risk Modeler Caregiver Provides Assist M6 OT- IP Functional Cognition Start: 06/04/23 09:22 Freq: Status: Active Protocol: Document 06/04/23 09:22 [facility] (Rec: 06/04/23 09:33 [facility] [id number]) Cognitive Factors Limiting Selfcare Function Cognitive Ability Level of Alertness Alert Patient Orientation Name,Age,Birthday,Month,Date, Year,Day of Week,Place, Situation Attention Span Ability Capable of Focused Attention, Capable of Sustained Attention Ability to Follow Commands Able to Follow Multi-Step Commands Cognitive Comments Cognitive Assessment Comments Pt is intact and able to follow and incorporate all her hip precautions for ADL and mobility needs with good safety. OT- Vision and Hearing OT- Hearing Assessment OT- Hearing Assessment WFL OT- Vision Assessment Visual Acuity Glasses All The Time Visual Attentiveness WFL Occular Pursuits WFL M7 OT- IP Mobility and Balance Start: 06/04/23 09:22 Freq: Status: Active Protocol: Document 06/04/23 09:22 [facility] (Rec: 06/04/23 09:33 [facility] [id number]) OT- Bed Mobility Assessment Supine to Sit Supine to Sit Assist Standby Assistance Sit to Supine Sit to Supine Assist Standby Assistance OT-Transfer Assessment Sit to and From Stand Sit to and from Stand Standby Assistance Transfers Transfer Ability Standby Assistance Technique Transfer Destination Bed,Toilet Transfer Technique Stand Step Pivot Devices Transfer Assistive Devices Gait Belt,Front Wheeled Walker Comments Mobility Comments SBA for all needs for mobility in the room with good safety. OT- Balance Assessment Sitting Balance and Reactions Static Sitting Balance Ability Normal Dynamic Sitting Balance Ability Good Standing Balance and Reactions Static Standing Balance Ability Good Dynamic Standing Balance Ability Fair M8 OT- IP Objective Assessments Start: 06/04/23 09:22 Freq: Status: Active Protocol: Document 06/04/23 09:22 [facility] (Rec: 06/04/23 09:33 [facility] [id number]) OT Gross Range of Motion Upper Extremity Range of Motion Assessment Within Functional Limits OT Strength Upper Extremity Strength Assessment Within Functional Limits M9 OT- IP Assessment and Plan Start: 06/04/23 09:22 Freq: Status: Active Protocol: Document 06/04/23 09:22 [facility] (Rec: 06/04/23 09:33 [facility] [id number]) OT Summary Assessment and Plan Potential Rehabilitation Potential Excellent Analytic Complexity at Evaluation Low Summary OT Impairments Pain,Strength,Balance, Functional Mobility,Bathing, Toilet Transfers,Shower Transfers Progress Towards Goals Progressing Toward Goals Assessment Summary Pt low complexity and main barriers are pain, and would benefit form assist for showering needs at this time. Pt has a supportive to be home to assist with her needs and to go to outpt PT. Goals Dressing Goal Independent,Pathology Transcriptionist,Sock Aid Toileting Goal Independent Bathing Goal Independent Toilet Transfer Goal Independent Shower Transfer Goal Standby Assistance Days to Meet Goals 5 Frequency of Treatment Frequency Of Treatment Once a Day Treatment Plan OT Treatment Plan ADL Training,Functional Mobility,Patient/Family Education,Discharge Planning Discharge Recommendations OT Discharge Recommendations Home with Assistance, Outpatient PT Home Equipment Needs BSC, long handled brush Transportation Needs at Discharge Private Vehicle
[2023-06-04 09:27] VITALS: BP 154/82; PULSE 70; RESP 16; TEMP 37; O2SAT 96
--- NOTE | 2023-06-04 10:39 | PM.DS.1 ---
History of Present Illness History of Present Illness Chief complaint: Right Total Hip Arthroplasty Narrative: Operative Date/Time/Diagnoses Date of procedure: 06/03/23 Time of procedure: 08:10 Pre-op diagnosis: Right hip OA Post-op diagnosis: same Procedure & Clinicians Procedure: Right total hip arthroplasty posterior approach Same procedure as scheduled: Yes Indications: The patient has had progressively worsening right hip pain with radiographic changes consistent with arthritis. Non-operative management has failed and the patient has requested total hip replacement. The risks, benefits and alternatives to surgery were discussed with the patient prior to proceeding. Risks discussed included, but were not limited to, failure to relieve pain, leg length discrepancy, dislocation, stiffness, infection, nerve damage, deep venous thrombosis, pulmonary embolism, stroke, coma, heart attack, permanent paralysis and , as well as the potential need for eventual revision of the prosthetic. Surgeon: Tita Pollock Senior It Engineer: Carlos Zavala Anesthesia Type: General and Spinal Daija is a pleasent 67 year old female who is POD#1 s/p Right total hip arthroplasty posterior approach done by Dr. Pollock. Overall doing very well, reports pain is a 1 at rest and 2 with walking. Has been able to get up and use the bathroom on her own with the use of a walker. Worked with PT on steps and ambulating safely. Has not required any opiod medication today or last night. Has been working with PT at the hospital and is sucessfully walking with the aid of a walker and doing steps/stairs. Has outpatient PT set up already. Lives at home with who is going to assist patient in the immediate post-op recovery period. Has a chair lift at home so she will not have to do stairs right away, she will progress to using stairs as she gains more of her independent mobility back. Has post-op meds at home already. Denies chest pain, SOB, fever, chills, nausea, vomiting, light headedness, dizziness. Reports severe low back and buttock muscle spasms with movement. Discharge Providers Provider Discharge Date: 06/04/23 Primary care physician: Teresita Bravo PA-C Consults: 06/03/23 06:39 Consult to Anesthesiology Routine Comment: Consulting Provider: Anesthesiologist Reason for consultation: Regional block for post operative pain control 06/03/23 10:44 Consult to Discharge Planning Routine Comment: Consult to Occupational Therapy Evaluate & Treat Comment: Physician Instructions: Evaluate and treat Consult to Physical Therapy Evaluate & Treat Comment: Physician Instructions: post op VICKY protocol Discharge provider: Madelyn Avitia PA-C Summary Hospital Course Discharge Diagnosis: Right hip OA s/p total hip arthroplasty posterior approach Hospital Course: Uncomplicated hospital course Exam Vital Signs (past 8 hours): - 06/04/23 08:17 06/04/23 08:18 06/04/23 09:27 Temperature 98.6 F Pulse Rate 69 69 70 Respiratory Rate 16 Blood Pressure 154/82 H 154/82 H 154/82 H Pulse Oximetry 96 Oxygen Delivery Method Room Air Oxygen Flow Rate 0 Const General: cooperative, healthy appearing and comfortable Resp Effort & Inspection: normal respiratory effort and able to speak in complete sentences Cardio Rate: regular rate Skin General: no rashes or lesions noted Other: Clean and dry Meenakshi dressing in place with scant dried blood at the distal incision site. Meenakshi is still functioning. Neuro General: patient alert, patient awake and patient oriented x3 Extrem Other: 5/5 DF, PF, EHL. Right Knee flexion and extension intact with minimal pain. Sensation intact throughout the RLE. Calves soft and non-tender. Objective Labs 06/04/23 05:45 Labs: Laboratory Results - last 24 hr 06/04/23 05:45 Hgb 11.0 L Hct 31.8 L PFSH Medical History (Updated 05/27/23 @ 10:18 by Emmy Garcia RN) Depression GERD (gastroesophageal reflux disease) HTN (hypertension) Carpal tunnel syndrome on both sides Surgical History (Updated 05/27/23 @ 10:18 by Emmy Garcia RN) History of total right knee replacement (2001) History of total left knee replacement (09/30/22) Hx of appendectomy Hx of bilateral cataract extraction Social History household members: spouse Smoking Status: Never smoker alcohol intake: current Discharge Assessment & Plan Assessment and Plan Assessment: Stable s/p right total hip arthroplasty posterior approach Plan of Treatment: Weight bearing as tolerated, posterior hip precautions. Work on mobilization with outpatient PT. Continue multimodal pain management. Continue ice. ASA BID for DVT prophylaxis. Post-op Rx sent already. Short Rx for muscle relaxant sent for post-op muscle spasms. Keep dressing intact until 2 week follow up appointment, keep clean and dry. Follow up with [facility] in 2 weeks All patient questions answered. Call our office if any further questions arise. Discharge Plan Discharge Plan Patient Disposition: Home Provider Discharge Comment: Follow up at [facility] in 2 weeks Discharge orders & Medications Discharge Orders: Discharge (Order); Ordered 06/04/23 Ordered By: Madelyn Avitia Prescriptions: New acetaminophen 325 mg Tablet 650 mg PO Q6H Qty: 90 0RF aspirin 81 mg Tablet,Delayed Release (Dr/Ec) 81 mg PO BID Qty: 90 0RF ibuprofen 400 mg Tablet 400 mg PO Q4H Qty: 60 0RF docusate sodium 100 mg Capsule 100 mg PO BID PRN (Reason: constipation) Qty: 30 0RF oxycodone 5 mg Tablet 5 mg PO Q4-6H PRN (Reason: Pain, Moderate (4-6)) Qty: 30 0RF cyclobenzaprine 5 mg tablet 5 mg PO TID PRN (Reason: muscle spasm) Qty: 14 0RF No Action aspirin 81 MG tablet,delayed release (DR/EC) 81 mg PO DAILY Qty: 0 metoprolol succinate 50 mg Tablet Extended Release 24 Hr 50 mg PO DAILY lisinopril 20 mg Tablet 20 mg PO DAILY sertraline [Zoloft] 50 mg Tablet 50 mg PO DAILY omeprazole 20 mg Tablet,Delayed Release (Dr/Ec) 20 mg PO DAILY acetaminophen 500 mg Tablet 500 mg PO QID PRN (Reason: Pain (Scale Score 1-3)) Follow up/Referrals: Tita Pollock MD [Physician] - 06/13/23 11:00 am (Appt:06/13 @ 11:[address] Pollock @ [address] ) Teresita Bravo PA-C [Primary Care Provider] - Diet/Activity/Treatments Diet: Diet as Tolerated Activity: standard total hip replacement protocol with weight bearing as tolerated and posterior hip precautions Cold/Heat Therapy: Ice to the hip for additional pain control Skin/Wound/Dressing Care Report to your healthcare provider any signs of infection, such as:: chills, fever, night sweats, unusual drainage and unusual redness Dressing: Keep dressing clean and dry. Keep dressing intact until 2 week post-op appointment. No soaking the incision site in pools or tubs. No topical ointments or creams to the incision site. Visit Report/Discharge Packet Instructions: DI for Hip Replacement, DI for Prescription Opioid Use Stand Alone Forms: Patient Portal/API Discharge Data Primary Care Provider: Teresita Bravo Attending Provider: Tita Pollock VTE Deep Vein Thrombosis/Pulmonary Embolism Present on Admission: No
--- NOTE | 2023-06-04 10:44 | CM.DANOTE ---
Initial DCP Assessment Visit Reviewed EMR and team rounds for pt's medical status and anticipated d/c needs. Met with pt/spouse and Ortho PA at bedside to introduce self and role. Pt found to be alert/oriented/preparing for d/c home today, spouse will transport. OP PT is the only recommendation for d/c, pt has already set this up. No further DCP needs are identified at this time. Payor: Medicare Attending: Dr. Tita Pollock Pt is a 67 year-old F post-op day 1 from her R-total hip arthroplasty surgery. Pt has a hx of progressively worsening hip pain that was not improving with OP conservative measures. She's endorsed chroinic, constant hip pain limiting her ADL's and mobility, uses urban walking sticks as mobility assistive device at baseline. Plan is for pt to d/c home w/spouse, OP PT, and f/u with Ortho in 2-weeks for wound check. No further needs or d/c preferences indicated for assistance at this time. Discharge Planning/Care Management Advanced directive, confirm from FAMILY Start: 06/03/23 11:11 Freq: Q24H Status: Active Protocol: Document 06/03/23 11:11 CM (Rec: 06/03/23 11:12 CM [id number]) Advance Directive, confirm on record Time 11:12 Person contacted Pt Copy received No CM Discharge Assessment Start: 06/04/23 10:33 Freq: Status: Active Protocol: Document 06/04/23 10:42 DPL (Rec: 06/04/23 10:44 DPL [id number]) Discharge Planning Assessment Assigned Medical Illustrator KHUSHBU Rivera Advance Directives? Yes Advance Directives on File No History Provided By Patient,Significant Other, Medical Record Has Patient been admitted in last 30 No days? Prior Living Arrangements House Household Members spouse Type of transporation used prior to Drives own vehicle admit Independent with ADL's Yes Is patient alert and oriented? Yes Caregiver for Another No Community Services used prior to Physical Therapy admission: DME Already Rented / Owned Bath Bench,Elevated Toilet Seat,FWW / Walker Comment No anticipated home d/c needs identified at this time. Barriers to Discharge No Discharge Plan Home Community Services Physical Therapy Transportation Arrangement Spouse Referrals Initiated None needed Whiteboard Updated in Patient Room with Yes name and ext. # of Medical Illustrator Review Status In Process Please Provide Date Initial DC 06/04/23 Assessment Was Performed Pre-Anesthesia Assessment Start: 05/27/23 09:56 Freq: Status: Complete Protocol: Document 05/27/23 09:56 CAB (Rec: 05/27/23 10:29 CAB [id number]) Pre-Anesthesia Assessment Patient Information Reviewed Via Phone Assessment Assessment Completed With Patient Diagnostic Results BMP/CMP,CBC,EKG,Urinalysis Comment Labs/EKG @ 02/28/23 Primary Care Provider Teresita Bravo Seen Specialist in Last 12 Months Yes Specialist Seen Emergency,Orthopedist Primary Language Romanian Sign Out Clerk Required No Height 167.64 cm Weight 90.718 kg Body Mass Index (BMI) 32.3 Hearing Ability Normal Visual Assist Glasses Barriers to Learning None Hx Anesthesia Reactions No: Unable to place a spinal with left knee replacement, vomiting w/Morphine Hx Family Anesthesia Reaction No Hx Malignant Hyperthermia No Hx Blood Transfusions No Anesthesia Review Requested No Retail Salesman No alcohol intake current alcohol intake frequency a few times a month Smoking Status Never smoker Substance Use Type marijuana Comment Edibles for sleep Pain Present Pain Reported Musculoskeletal Symptoms Abnormal Gait,Difficulty Walking,Joint Pain,Limited Range of Motion History of Falling (Recent or History of No ) Patient is completely paralyzed or No completely immobile Mental Status Oriented to own ability Comment wrist splints, urban pole walking sticks for balance Is patient on oxygen? No Does patient have MELO/SOB No Hx Sleep Apnea No Currently Taking a Beta Adilene Yes: Metoprolol Can You Climb a Flight of Stairs Without No: Due to deconditioning SOB Hx Chest Pain No Hx SOB No Hx Syncope or Dizziness No Anti-Coagulant Therapy No Has a Raftsman No Cardiac Testing No Hx Pacemaker/ICD No Pacemaker Rep Required? No Cardiac Clearance Received Not Applicable Diet Type At Home Regular Dysphagia No Gastrointestinal Symptoms Reflux Bladder Pattern Incontinent Urinary Catheter Present No Hx Urinary Self Catheterization No Diabetes No HgbA1C 5.2 Date 02/28/23 Patient No Lactating No Presence of External or Internal Medical Yes: Suzy knee prosthesis, suzy Devices eye IOLs Received a COVID vaccine? Yes Received all doses? Yes Marital Status Lives With spouse Current Living Arrangements House Number of Floors (Floors) One Floor Support System Spouse Does the Patient Have Assistance After Yes Surgery Patient Discharge Plan Description Return Home Comment Pt not advised on length of stay per surgeon Feels Safe in Current Environment Yes Been Physically Hurt or Threatened By a No Person in Current Environment Do you have thoughts of harming yourself None or others? Are you currently considering suicide? No Do you have a plan to hurt yourself or No Plan others? Do You Have Any Spiritual Beliefs That No May Affect Your HC Choices? Do You Have Any Cultural Practices That No May Affect Your HC Choices? Comment Prostestant Who Can We Speak to About Patient's Care Family, friends Identifying Code for Release of Patient Declines to issue Information Health Care Proxy/Next of Kin Philippe () Health Care Proxy Emergency Contact Name Philippe () Emergency Contact Advance Directives? Yes Advance Directives on File No Requested Patient Bring Advanced Yes Directives DOS Power of Roller Operator Yes Power of Roller Operator Name Philippe () Power of Roller Operator PAC Instructions Do not shave/clip surgical site,Durable medical equipment ,Medications to take/avoid, Nasal antibiotic,No ETOH/ petroleum product on skin DOS, NPO,Post-op transportation,Pre -surgical wash,Sensory aids, Sturdy shoes/comfortable clothes,Do not bring valuables and remove jewelry
== END 2023-06-04 11:25 | disposition home or self-care (01) ==
LOC: OR 06:03 → AC 06:04
PROVIDERS: Family Provider Family Medicine; PCP Physician Assistant Medical; Referring Provider Orthopaedic Surgery; Visit Provider Orthopaedic Surgery
PROC: 0SR90JZ Replacement of Right Hip Joint with Synthetic Substitute, Open Approach (ICD-10-PCS; CPT 27130; principal; 2023-06-03 07:45)
DX: M16.11 Unilateral primary osteoarthritis, right hip (principal); I10 Essential (primary) hypertension; K21.9 Gastro-esophageal reflux disease without esophagitis; Z96.653 Presence of artificial knee joint, bilateral
CPT/HCPCS: 27130; 36415; 72170; 73502; 85014; 85018; 97116; 97161; 97165; 97530; 97535; C1776; C9290; J0171; J0690; J1100; J1170; J2250; J2405; J2704; J3010

== ENCOUNTER 2023-07-08 11:07 | Inpatient (IN) | payer MEDICARE, OTHER, SELFPAY ==
[2023-06-03 10:58] VITALS: BMI 34.0
[2023-07-07 11:37] VITALS: BMI 33.9
[2023-07-08] VITALS (10 sets, daily range): BP systolic 103–172; BP diastolic 65–106; PULSE 57–73; RESP 14–18; TEMP 36–36.7; O2SAT 94–100; BMI 33.9
--- NOTE | 2023-07-08 | DI.RAD.S_ITS ---
PROCEDURE: XR HIP W PEL IF DONE RT 2V INDICATIONS: GREATER FRACTURE TECHNIQUE: AP pelvis and lateral view of the hip acquired. COMPARISON: [facility], CR, XR HIP W PEL IF DONE RT 2V, 07/08/2023, 15:53. [facility], CR, XR HIP W PEL IF DONE RT 2V, 06/03/2023, 10:03. [facility] [place], CR, XR PELVIS WITH LATERAL HIP RIGHT, 07/02/2023, 8:51. FINDINGS: Bones: Patient is status post internal fixation of the periprosthetic right greater trochanter fracture, with hardware components in expected positions. The hip joint appears congruent. Hip arthroplasty is in stable position. The visualized bony structures appear intact. Soft tissues: Overlying postoperative changes are noted. No suspicious soft tissue densities. IMPRESSION: Expected post-operative appearance from right periprosthetic greater trochanter fracture fixation. Approved by: Jr Jacques M.D. on 07/08/2023 at 20:35
--- NOTE | 2023-07-08 | DI.RAD.S_ITS ---
PROCEDURE: XR HIP W PEL IF DONE RT 2V INDICATIONS: OR TECHNIQUE: Multiple spot fluoroscopic intraoperative images of the right hip. COMPARISON: [facility] [place], CR, XR PELVIS WITH LATERAL HIP RIGHT, 07/02/2023, 8:51. [facility], CR, XR HIP W PEL IF DONE RT 2V, 07/08/2023, 18:18. [facility], CR, XR HIP W PEL IF DONE RT 2V, 06/03/2023, 10:03. FINDINGS: Fluoroscopic images are seen from fixation of the previously seen greater trochanter fracture with a lateral plate and screw construct and cerclage wires. Right hip arthroplasty distant appear significantly changed. IMPRESSION: Expected intraoperative appearance of the right proximal femoral fracture fixation. Approved by: Jr Jacques M.D. on 07/08/2023 at 20:33
[2023-07-08] MEDS: LACTATED RINGERS 1,000 ML 42 ML IV ×2 (11:53→16:29)
--- NOTE | 2023-07-08 14:40 | P.OP_ITS ---
Operative Date/Time/Diagnoses Date of procedure: 07/08/23 Time of procedure: 14:50 Pre-op diagnosis: right hip greater trochanteric fracture Post-op diagnosis: same Procedure & Clinicians Procedure: Open reduction internal fixation right greater trochanter fracture Same procedure as scheduled: Yes Indications: This is a 67-year-old female has a history of a recent right total hip arthroplasty. She had substantial problems postoperatively with pain in her x- rays showed a nondisplaced greater trochanter fracture. She was initially managed conservatively but there was increased displacement of the fracture. She is brought the operating room for open reduction internal fixation. Procedure options risks benefits and complications including but not limited to persistent fracture and possibility of nonhealing or nonunion was discussed. She is symptomatic and I have recommended open reduction internal fixation. 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 A multimedia instructional designer-out was performed. She was given IV antibiotics and tranexamic acid. The patient's previous skin incision was used. And a clip was used in order to freshen the margin and provided new surface for wound healing. A PA was used throughout the procedure and was essential for intraoperative retraction and allowing safe fixation of the fracture fragment and assisting with intraoperative positioning as well as passage of the cerclage wires. Two Allis clamps were used to grasp skin and subcutaneous tissues which was removed. Multiple previous stitches were removed. Dissection was carried out down to the level of the fascia. An incision was made in the fascia. Fluid was sent for Gram stain culture and sensitivity from the deep fluid. There was no obvious evidence of infection. There was a seroma in the wound but no evidence of infection. Dissection was carried out down to the trochanter. It was noted that the trochanter was displaced and was mobile. It was clearly going onto a nonunion. The edge along the fracture site was carefully freshened. The trochanter was fairly mobile. It was carefully mobilized and reduced. It was then fixed with a Evos hook plate. Fracture was reduced the plate was placed it was tamped down into the t rochanter. I then attempted to pull some traction on the plate and further reduced the fracture. It was fixed to the shaft with several unicortical screws as well as a cerclage wire. In addition to the hook I also fixed the trochanteric fragment with a separate screw and an additional cerclage wire wound around the soft tissues in the trochanter. The cerclage wires were carefully passed without difficulty. Adequate reduction was achieved. Intraoperative fluoroscopic imaging was used for confirming the reduction as well as further evaluating plate position. It was opted to use a short plate in order to avoid a stress riser at the base of the prosthesis. Adequate fixation was achieved with a short plate including a cerclage wire and multiple screws in the more distal fragment. There was slight gapping along the anterior aspect of the greater trochanter and in an effort to achieve long-term bone healing it was packed with DBM putty 5 cc in order to remote promote union. Final fluoroscopic images were obtained. The wound was treated with a brief Betadine soak. The wound was irrigated with normal saline. The wound was closed with combination of interrupted absorbable and nonabsorbable sutures in the fascial layer. There was a small seroma in the subcutaneous tissues and that region was carefully freshened in order to optimize subcutaneous tissue healing. Barbed stitches were used in the subcutaneous tissues and skin was closed with skin marek. Meenakshi dressing was applied. She tolerated the procedure well she was transferred to recovery room in satisfactory condition. Complications none. Complications: none Post-operative Condition: stable Disposition: Acute Care Plan for aftercare: The patient will be maintained on a standard total hip replacement protocol with weight bearing as tolerated and posterior hip precautions. The patient will receive Aspirin and sequential compression devices for DVT prophylaxis. The patient will be discharged home when safe for the home environment.
--- NOTE | 2023-07-08 14:40 | PM.PREOP ---
Pre-operative Note Interval Note History & Physical reviewed/Exam performed by Physician: Yes Changes to H&P: No
[2023-07-08] MEDS: CEFAZOLIN 2 GM/100 ML PREMIX 100 ML IV ×2 (14:50→22:06)
[2023-07-08] MEDS: TRANEXAMIC ACID 1,000 MG VIAL 2000 MG INJ ×2 (15:05→17:47)
[2023-07-08] MEDS: BUPIVACAINE 0.25% (PF) 60 ML, EPINEPHrine 0.3 MG INJ (15:40)
[2023-07-08] MEDS: BUPIVACAINE LIPOSOME 266 MG/20 ML VIAL INJ (15:41)
[2023-07-08] MEDS: ACETAMINOPHEN IV 1,000 MG/100 ML VIAL 400 MG IV (17:30)
[2023-07-08 19:26] LABS: Hemoglobin 12.2 g/dL (12.0-16.0); Mean Corpuscular Hemoglobin 28.5 PG (26-34); Mean Corpuscular Volume 86.4 fL (80-100); Platelet Count 335 X10^3/uL (150-400); Red Blood Cell Count 4.28 X10^6/uL (4.0-5.2); Red Cell Distribution Width 13.3 % (11.6-14.8); White Blood Cell Count 9.2 X10^3/uL (4.5-11.0)
[2023-07-08] MEDS: OXYCODONE IR 5 MG TABLET PO (21:31)
[2023-07-08] MEDS: ASPIRIN EC 81 MG TABLET PO (21:31)
[2023-07-08] MEDS: IBUPROFEN 400 MG TABLET PO (21:31)
[2023-07-08] MEDS: LACTATED RINGERS 1,000 ML 100 ML IV (21:57)
[2023-07-09] MEDS: OXYCODONE IR 5 MG TABLET PO ×2 (00:47→05:06)
[2023-07-09] MEDS: IBUPROFEN 400 MG TABLET PO ×3 (03:00→10:57)
[2023-07-09 03:07] VITALS: BP 133/78; PULSE 70; RESP 16; TEMP 36.8; O2SAT 97
[2023-07-09 05:10] LABS: Hematocrit 31.4 % (36-46); Hemoglobin 10.8 g/dL (12.0-16.0)
[2023-07-09] MEDS: PANTOPRAZOLE DR 20 MG TABLET PO (06:12)
[2023-07-09] MEDS: CEFAZOLIN 2 GM/100 ML PREMIX 100 ML IV (06:13)
--- NOTE | 2023-07-09 07:33 | PM.PNPO.1 ---
Subjective Subjective Date Patient Seen: 07/09/23 Time Patient Seen: 07:33 Interval history: Right hip pain is [id number]. Denies fever or chills. No nausea or vomiting. Patient has assistance at home. Patient has been up this morning to use the restroom. Exam Vital Signs (past 8 hours): - 07/09/23 03:07 Temperature 98.2 F Pulse Rate 70 Respiratory Rate 16 Blood Pressure 133/78 Pulse Oximetry 97 Oxygen Flow Rate 0 Oxygen Delivery Method Room Air Oxygen Flow Rate 0 Narrative Exam Narrative: 67-year-old female sitting up in bed in no apparent distress. Meenakshi dressing is on and functioning. Scant drainage on the superior aspect of the dressing. Motor functions intact bilateral lower extremities. Sensation grossly intact to light touch bilateral lower extremities. Const General: cooperative and comfortable Nutritional Appearance: obese (33.9 BMI) Orientation: alert Resp Effort & Inspection: normal respiratory effort and able to speak in complete sentences Objective Labs 07/09/23 04:34 Labs: Laboratory Results - last 24 hr 07/08/23 07/09/23 19:20 04:34 WBC 9.2 RBC 4.28 Hgb 12.2 10.8 L Hct 37.0 31.4 L MCV 86.4 MCH 28.5 MCHC 33.0 RDW 13.3 Plt Count 335 PFSH Medical History (Updated 05/27/23 @ 10:18 by Emmy Garcia RN) Depression GERD (gastroesophageal reflux disease) HTN (hypertension) Carpal tunnel syndrome on both sides Surgical History (Updated 05/27/23 @ 10:18 by Emmy Garcia RN) History of total right knee replacement (2001) History of total left knee replacement (09/30/22) Hx of appendectomy Hx of bilateral cataract extraction Social History household members: spouse Smoking Status: Never smoker alcohol intake: current Assessment & Plan Post-op Postoperative Procedures: Procedures Operation Date: 07/08/23 13:45 Actual Procedure Side Surgeon p ORIF fracture of greater trochanter Right Tita Pollock MD Postoperative day: 1 Postoperative status: doing well Postoperative plan narrative: Multimodal pain management No hip abduction exercises Weight-bearing as tolerated Meenakshi dressing to remain on until follow up in 2 weeks Discharge home today after PT if safe for home environment Quality VTE Deep Vein Thrombosis/Pulmonary Embolism Present on Admission: No
--- NOTE | 2023-07-09 07:37 | PM.DS.1 ---
History of Present Illness History of Present Illness Date Patient Seen: 07/09/23 Time Patient Seen: 07:37 Chief complaint: Hip pain Narrative: See progress note Discharge Providers Provider Date of admission: 07/08/23 11:07 Discharge Date: 07/09/23 Primary care physician: Teresita Bravo PA-C Consults: 07/08/23 18:45 Consult to Discharge Planning Routine Comment: Consult to Occupational Therapy Evaluate & Treat Comment: Physician Instructions: Evaluate and treat Consult to Physical Therapy Evaluate & Treat Comment: Physician Instructions: post op VICKY protocol Discharge provider: Carlos Zavala PA-C Summary Hospital Course Discharge Diagnosis: Right hip greater trochanteric fracture Hospital Course: Open reduction internal fixation right greater trochanter fracture Same procedure as scheduled: Yes Indications: This is a 67-year-old female has a history of a recent right total hip arthroplasty. She had substantial problems postoperatively with pain in her x-rays showed a nondisplaced greater trochanter fracture. She was initially managed conservatively but there was increased displacement of the fracture. She is brought the operating room for open reduction internal fixation. Procedure options risks benefits and complications including but not limited to persistent fracture and possibility of nonhealing or nonunion was discussed. She is symptomatic and I have recommended open reduction internal fixation. 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 Patient consented to the same. Patient taken to the operating room yesterday July 08, 2023 underwent open reduction internal fixation right greater trochanteric fracture. Patient back in her room recovering well as in stable condition. Patient has been up out of bed to use the restroom this morning. Patient has assistance at home. Reviewed wound care. Weightbearing as tolerated, no abduction exercises. Follow up outpatient Orthopedics in 2 weeks. Discharge home today after physical therapy if safe for home environment. Exam Vital Signs (past 8 hours): - 07/09/23 03:07 Temperature 98.2 F Pulse Rate 70 Respiratory Rate 16 Blood Pressure 133/78 Pulse Oximetry 97 Oxygen Flow Rate 0 Oxygen Delivery Method Room Air Oxygen Flow Rate 0 Narrative Exam Narrative: See progress note Objective Labs 07/09/23 04:34 Labs: Laboratory Results - last 24 hr 07/08/23 07/09/23 19:20 04:34 WBC 9.2 RBC 4.28 Hgb 12.2 10.8 L Hct 37.0 31.4 L MCV 86.4 MCH 28.5 MCHC 33.0 RDW 13.3 Plt Count 335 PFSH Medical History (Updated 05/27/23 @ 10:18 by Emmy Garcia RN) Depression GERD (gastroesophageal reflux disease) HTN (hypertension) Carpal tunnel syndrome on both sides Surgical History (Updated 05/27/23 @ 10:18 by Emmy Garcia RN) History of total right knee replacement (2001) History of total left knee replacement (09/30/22) Hx of appendectomy Hx of bilateral cataract extraction Social History household members: spouse Smoking Status: Never smoker alcohol intake: current Discharge Assessment & Plan Assessment and Plan Assessment: Patient progressing as expected status post open reduction internal fixation right greater trochanteric fracture Plan of Treatment: Multimodal pain management Weight-bearing as tolerated No hip abduction exercises Follow up outpatient Orthopedics in 2 weeks Discharge home today Discharge Plan Discharge Plan Patient Disposition: Home Discharge orders & Medications Prescriptions: New acetaminophen 325 mg Tablet 650 mg PO Q6H PRN (Reason: Fever/Mild Pain (1-3)) Qty: 60 0RF aspirin 81 mg Tablet,Delayed Release (Dr/Ec) 81 mg PO BID Qty: 60 0RF oxycodone 5 mg Tablet 5 mg PO Q4-5H PRN (Reason: Pain, Moderate (4-6)) Qty: 40 0RF Continued metoprolol succinate 50 mg Tablet Extended Release 24 Hr 50 mg PO DAILY lisinopril 20 mg Tablet 20 mg PO DAILY sertraline [Zoloft] 50 mg Tablet 50 mg PO DAILY omeprazole 20 mg Tablet,Delayed Release (Dr/Ec) 20 mg PO DAILY ibuprofen 400 mg Tablet 400 mg PO Q4H Qty: 60 0RF cyclobenzaprine 5 mg tablet 5 mg PO TID PRN (Reason: muscle spasm) Qty: 14 0RF Discontinued aspirin 81 MG tablet,delayed release (DR/EC) 81 mg PO DAILY Qty: 0 acetaminophen 500 mg Tablet 500 mg PO QID PRN (Reason: Pain (Scale Score 1-3)) oxycodone 5 mg Tablet 5 mg PO Q4-6H PRN (Reason: Pain, Moderate (4-6)) Qty: 30 0RF Follow up/Referrals: Tita Pollock MD [Physician] - (2 weeks) Teresita Bravo PA-C [Primary Care Provider] - Diet/Activity/Treatments Diet: Diet as Tolerated Activity: Weight-bearing as tolerated, no abduction exercises Cold/Heat Therapy: Apply ice as needed Skin/Wound/Dressing Care Report to your healthcare provider any signs of infection, such as:: chills, fever, night sweats, increased pain, unusual drainage and unusual redness Dressing: Keep dressing clean and dry, arnav instructions reviewed Visit Report/Discharge Packet Instructions: DI for Open Reduction Internal Fixation Surgery, DI for Prescription Opioid Use Stand Alone Forms: Patient Portal/API, Stroke Signs & Symptoms, Surgery Discharge Discharge Data Primary Care Provider: Teresita Bravo Quality VTE Deep Vein Thrombosis/Pulmonary Embolism Present on Admission: No
[2023-07-09 09:29] VITALS: BP 148/90; PULSE 77
[2023-07-09] MEDS: SERTRALINE 50 MG TABLET PO (09:29)
[2023-07-09] MEDS: lisinopriL 20 MG TABLET PO (09:29)
[2023-07-09] MEDS: ASPIRIN EC 81 MG TABLET PO (09:29)
[2023-07-09] MEDS: METOPROLOL ER 50 MG TABLET PO (09:29)
[2023-07-09] MEDS: DOCUSATE 100 MG CAPSULE PO (09:29)
--- NOTE | 2023-07-09 10:05 | OT.IPNOTE ---
Chart reviewed and discussed with P.T. and patient. Pt is educated on on hip precautions and is aware of how to manage her care at home after sx. Pt and P.T. agreed that pt is doing well and does not need OT at this time. Will discharge OT eval order.
--- NOTE | 2023-07-09 10:27 | PT.IIE ---
Current Diagnoses Displaced fracture of greater trochanter of right femur, initial encounter for closed fracture (07/08/23) Presence of right artificial hip joint (07/08/23) Surgery Performed Operation Date: 07/08/23 13:45 Actual Procedures p ORIF fracture of greater trochanter(Right) - Tita Pollock MD Surgical History (Last Updated 05/27/23 @ 10:18 by Emmy Garcia, RN) History of total left knee replacement (09/30/22) History of total right knee replacement (2001) Hx of appendectomy Hx of bilateral cataract extraction Medical History (Last Updated 05/27/23 @ 10:18 by Emmy Garcia RN) Carpal tunnel syndrome on both sides Depression GERD (gastroesophageal reflux disease) HTN (hypertension) Physical Therapy Inpatient Evaluation/Re-Eval M1 PT/OT-IP Prior Functional Status Start: 07/09/23 10:38 Freq: NEEDED Status: Active Protocol: Document 07/09/23 10:27 DLM (Rec: 07/09/23 11:04 DL [id number]) Medical Review Prior Functional Status Medical History Reviewed Yes Diet/Fluid Consistency Regular Communication WFL Mobility and Gait Independent with FWW before this admission. She was able to progress her distances after VICKY surgery. Activities of Daily Living and IADL's Independent with equipment, sits for shower, uses safety lead and other equipment to continue posterior hip precautions Social History Household Members spouse Living Arrangements House Number of Floors (Floors) One Floor Number of Stairs To Enter/Railing? chair lift into house from garage Home Environment Standard Height Toilet,Walk in Shower Home Equipment Front Wheel Walker,Four Wheel Walker,Straight Cane,Raised Toilet Seat Without Armrests, Shower Seat with Backrest,Hand Held Shower,Field Marketing Lead,Sock Aid Employment Status Retired Additional Social History Comment has safety frame that she uses in shower around shower seat M2 PT-IP Current Condition Start: 07/09/23 10:38 Freq: NEEDED Status: Active Protocol: Document 07/09/23 10:27 DLM (Rec: 07/09/23 11:04 DL [id number]) Physical Therapy Current Condition Current Condition Evaluation Date 07/09/23 Treatment Diagnosis right hip ORIF following VICKY, impaired mobility/gait Onset Date 07/08/23 M3 PT-IP Subjective Start: 07/09/23 10:38 Freq: NEEDED Status: Active Protocol: Document 07/09/23 10:27 DLM (Rec: 07/09/23 11:04 DL [id number]) Subjective Physical Therapy Visit Type Type Initial Evaluation Visit Start Time 09:40 Visit Stop Time 10:27 Number of COAL CAGER Visits 0 Physical Therapy Visit Comments Patient Comments She feels she is safe to go home today. Patient Goals Discharge home with Therapy Pain Assessment Pain When Pain Assessed During Mobility Pain Present Pain Present Pain Reported Location Right Hip Intensity 2 Scale Used Numeric (0 - 10) Description Aching Pain Management Techniques Re-positioning,Timing of Activity with Medications M4 PT-IP Mobility and Gait Start: 07/09/23 10:38 Freq: NEEDED Status: Active Protocol: Document 07/09/23 10:27 DLM (Rec: 07/09/23 11:04 [facility] [id number]) PT-Bed Mobility Assessment Supine to Sit Supine to Sit Independent Sit to Supine Sit to Supine Independent Scooting Scooting to Edge of Bed Independent Scooting Up and Down in Bed Independent PT-Transfer Assessment Sit to and From Stand Sit to and from Stand Independent,Use of Upper Extremities Equipment Transfer Assistive Device Gait Belt,Front Wheeled Walker Transfers Transfer Destination Bed,Chair Transfer Technique Stand Step Pivot Transfer Ability Level of Assist Independent,Use of Upper Extremities Comments Mobility Comments she demonstrates good understanding of posterior hip precautions during mobility Educated pt in use of pillow between knees in supine and in recliner to avoid crossing LE 's. Pt left up in recliner this visit with feet elevated and call light in reach. Gait Assessment Gait Gait Assistance Required: Independent Distance (Feet) 120 Assistive Devices Assistive Device Gait Belt,Front Wheeled Walker Gait Deviations General Gait Pattern Antalgic,Flexed Trunk Factors Limiting Gait Function Factors Limiting Gait Function Decreased Activity Tolerance, Decreased Strength,Limited Range of Motion,Pain,Poor Balance Comments Gait Comments She demonstrates safe use of FWW for gait, she has flexed trunk to use UE support on FWW to manage right hip pain with weight bearing, verbal reminders for pt to slow down during gait Stair Climbing Assessment Comments Stair Climbing Comments she will use stair lift at home PT-Balance Assessment Sitting Balance and Reactions Static Sitting Balance Ability Normal Dynamic Sitting Balance Ability Normal Standing Balance and Reactions Static Standing Balance Ability Good Dynamic Standing Balance Ability Good Device Used FWW M5 PT-IP Objective Assessments Start: 07/09/23 10:38 Freq: NEEDED Status: Active Protocol: Document 07/09/23 10:27 DLM (Rec: 07/09/23 11:04 [facility] [id number]) Orientation Orientation/Cognition Level of Alertness Alert Orientation Name,Age,Birthday,Month,Date, Year,Day of Week,Place, Situation Language Function Ability No Deficits Noted Safety Awareness Understands Safety Issues Memory Description No Deficits Noted Gross Range of Motion Upper Extremity ROM Assessment Within Functional Limits Lower Extremity ROM Assessment Right Impaired Impairments posterior hip precautions s/p VICKY Strength Upper Extremity Strength Assessment Within Functional Limits Lower Extremity Strength Assessment Right Impaired Hip hip flex 3-/5 with pain Knee 4/5 Ankle DF 5/5 Coordination Assessment Gross Coordination Gross Coordination WNL Sensation Assessment Sensation Gross Sensation WNL Muscle Tone Muscle Tone WNL Yes M6 PT-IP Treatment Start: 07/09/23 10:38 Freq: NEEDED Status: Active Protocol: Document 07/09/23 10:27 DLM (Rec: 07/09/23 11:04 [facility] [id number]) Physical Therapy Treatment Exercises Exercises Ankle Pumps,Gluteal Sets,Quad Sets,Heel Slides Education Education Provided Precautions,Weight Bearing Status,Post-Op Packet,Safety Other Treatments Other Treatment Performed Her is not present today for education/training, pt does not feel caregiver training is needed before discharge M7 PT-IP Assessment and Plan Start: 07/09/23 10:38 Freq: NEEDED Status: Active Protocol: Document 07/09/23 10:27 DLM (Rec: 07/09/23 11:04 [facility] [id number]) PT Summary Assessment and Plan Potential Rehabilitation Potential Good Status of Condition at Evaluation Evolving Summary Impairments Pain,ROM,Strength,Balance,Gait ,Activity Tolerance Progress Towards Goals Safe For Discharge Assessment Summary Daija is alert and resting in bed. She reports she is doing well after surgery. She demonstrates good tolerance for functional mobility and gait with the FWW today. Reviewed posterior hip precautions with pt. She reports having difficulty avoiding crossing legs in bed/ chair so encourage her to put pillow between knees as reminder. She appears safe to discharge home today with her . Training completed this visit. She is cleared by physical therapy for discharge when she is medically stable. Spoke to nurse about pt's progress after this therapy session. Anticipate discharge home later today. Frequency of Treatment Frequency Of Treatment Discharge Treatment Plan Other Recommendations and Next Treatment training completed this visit Focus Precautions Posterior Hip Precautions No Hip Flexion > 90 degrees,No Hip Internal Rotation,No Hip Adduction Other Precautions pt reports surgeon wants her to avoid hip abduction FRANCIA drain in place Weight Bearing Status Weight Bearing Status Weight Bear as Tolerated Allowed Weight Bearing Amount (enter % right LE or #) (%) Recommendations To Nursing Amount of Assist Needed Standby Assistance Discharge Recommendations PT Discharge Recommendations Home with Assistance Other Discharge Recommendations Spouse is able to assist her at discharge Transportation Needs at Discharge Private Vehicle
--- NOTE | 2023-07-09 11:30 | PC.NURSE ---
Pt discharged home at 1125, escorted off floor in wheelchair accompanied by spouse and hospital staff. IV removed, discharge teaching completed including wound care, follow up appointments and new medications. Questions answered and concerns addressed. Patient left the floor with all belongings.
--- NOTE | 2023-07-09 11:33 | CM.DANOTE ---
DCP Assessment note Pt is a 67yo F here following right hip greater trochanteric fracture with Dr. Pollock on 07.08.23. Pt had total right hip surg with Dr. Pollokc on 06.02.23. PCP Teresita Bravo Payer Medicare and [employer]. PILE DRIVER OPERATOR HELPER reviewed EMR. Information gathered from current hospitalization and previous stay in May of this year. Pt dc'd home with no CM needs/Spouse support last admission. Per PT/OT, pt doing well today. Rec home with spouse. Has all equip needs from last surg. PILE DRIVER OPERATOR HELPER met with pt and spouse briefly in room. Eager to dc home. Reports nothing has changed since last admission, and denies any CM needs. Pt will continue to follow with OP PT and will f/u with ortho in clinic. Plan: dc home today with spouse. No further CM needs or preferences identified at this time. CM team will follow as needed. KHUSHBU Smith Discharge Planning/Care Management Advanced directive, confirm from FAMILY Start: 07/08/23 19:03 Freq: Q24H Status: Discharge Protocol: Document 07/08/23 19:03 (Rec: 07/08/23 23:46 [id number]) Advance Directive, confirm on record Time 22:00 Person contacted pt Copy received No CM Discharge Assessment Start: 07/09/23 11:30 Freq: Status: Discharge Protocol: Document 07/09/23 11:30 (Rec: 07/09/23 11:32 [id number]) Discharge Planning Assessment Assigned Audiologist KHUSHBU Shea DPOA/Assigned Designee Name Philippe spouse Contact Information [phone] Advance Directives? Yes Advance Directives on File No History Provided By Patient,Significant Other, Medical Record Prior Living Arrangements House Household Members spouse Type of transporation used prior to Drives own vehicle admit Independent with ADL's Yes Is patient alert and oriented? Yes Caregiver for Another No Community Services used prior to Physical Therapy admission: DME Already Rented / Owned Bath Bench,Elevated Toilet Seat,FWW / Walker Comment No dc needs identified at this time. Barriers to Discharge No Discharge Plan Home Transportation Arrangement Spouse Referrals Initiated None needed Whiteboard Updated in Patient Room with Yes name and ext. # of Audiologist Review Status In Process Next Review Type Continued Stay Review Pre-Anesthesia Assessment Start: 07/07/23 11:37 Freq: Status: Discharge Protocol: Document 07/07/23 11:37 CAB (Rec: 07/07/23 11:44 CAB [id number]) Pre-Anesthesia Assessment PAC Comment Pt is s/p RT VICKY 06/03/23 Patient Information Reviewed Via Chart Review Primary Care Provider Teresita Bravo Seen Specialist in Last 12 Months Yes Specialist Seen Emergency,Orthopedist Primary Language Burmese Preferred Language Burmese Net Software Developer Required No Height 167.64 cm Weight 95.254 kg Body Mass Index (BMI) 33.9 Hearing Ability Normal Visual Assist Glasses Dentition Type Teeth, Natural Present Barriers to Learning None Hx Anesthesia Reactions No: Unable to place a spinal with left knee replacement, vomiting w/Morphine Hx Family Anesthesia Reaction No Hx Malignant Hyperthermia No Hx Blood Transfusions No Hx Blood Transfusion Reaction No Anesthesia Review Requested No Machine Zipper Trimmer No alcohol intake current alcohol intake frequency a few times a month Smoking Status Never smoker Substance Use Type marijuana Comment Edibles for sleep Pain Present Pain Reported Musculoskeletal Symptoms Abnormal Gait,Difficulty Walking,Joint Pain History of Falling (Recent or History of No ) Patient is completely paralyzed or No completely immobile Mental Status Oriented to own ability Is patient on oxygen? No Does patient have MELO/SOB No Hx Sleep Apnea No CPAP/BIPAP use not prescribed Currently Taking a Beta Adilene Yes: Metoprolol Can You Climb a Flight of Stairs Without No: Due to deconditioning SOB Hx Chest Pain No Hx SOB No Hx Syncope or Dizziness No Anti-Coagulant Therapy No Has a Electric Distribution Checker No Cardiac Testing No Hx Pacemaker/ICD No Pacemaker Rep Required? No Cardiac Clearance Received Not Applicable Diet Type At Home Regular Dysphagia No Gastrointestinal Symptoms Reflux Bladder Pattern Incontinent Urinary Catheter Present No Hx Urinary Self Catheterization No Diabetes No Patient No Lactating No Presence of External or Internal Medical Yes: Suzy knee prosthesis, suzy Devices eye IOLs, right hip Received a COVID vaccine? Yes Received all doses? Yes Marital Status Lives With spouse Current Living Arrangements House Number of Floors (Floors) One Floor Support System Spouse Does the Patient Have Assistance After Yes Surgery Patient Discharge Plan Description Return Home Feels Safe in Current Environment Yes Been Physically Hurt or Threatened By a No Person in Current Environment Do you have thoughts of harming yourself None or others? Are you currently considering suicide? No Do you have a plan to hurt yourself or No Plan others? Do You Have Any Spiritual Beliefs That No May Affect Your HC Choices? Do You Have Any Cultural Practices That No May Affect Your HC Choices? Comment Orthodox Who Can We Speak to About Patient's Care Family, friends Identifying Code for Release of Patient Declines to issue Information Health Care Proxy/Next of Kin Philippe () Health Care Proxy Emergency Contact Name Philippe () Emergency Contact Advance Directives? Yes Advance Directives on File No Power of Cisco Consultant Yes Power of Cisco Consultant Name Philippe () Power of Cisco Consultant Stop Bang Assessment Do you snore loudly (louder than talking No or loud enough to be heard through closed doors) Do you often feel tired, fatigued or No sleepy during the daytime Has anyone ever observed you stop No breathing while sleeping? Do you have, or are you being treated No for, high blood pressure
== END 2023-07-09 11:32 | disposition home or self-care (01) | DRG 482 ==
PROVIDERS: Student in an Organized Health Care Education/Training Program; Admitting Provider Orthopaedic Surgery; Family Provider Family Medicine; PCP Physician Assistant Medical; Referring Provider Orthopaedic Surgery; Visit Provider Orthopaedic Surgery
PROC: 0QS604Z Reposition Right Upper Femur with Internal Fixation Device, Open Approach (ICD-10-PCS; principal; 2023-07-08 13:45)
DX: M96.661 Fracture of femur following insertion of orthopedic implant, joint prosthesis, or bone plate, right leg (principal); F32.A Depression, unspecified; K21.9 Gastro-esophageal reflux disease without esophagitis; I10 Essential (primary) hypertension
CPT/HCPCS: 36415; 73502; 76000; 85014; 85018; 85027; 87070; 87075; 87205; 97162; C1776; C1713; C9290; J0136; J0171; J0690; J1100; J1170; J2250; J2405; J2704